=== PATIENT | male | born 1955 | race Caucasian/White ===

== ENCOUNTER 2017-06-05 19:37 | Emergency (ER) | payer OTHER ==
[~2017-06-05] VITALS: Ht 177.8 cm; Wt 95.0 kg
[2017-06-05 21:53] LABS: EOSINOPHILS % 0.2 % (0.0-5.0); HEMOGLOBIN. 13.2 g/dL (14.0-18.0); LYMPHOCYTES % 13.4 % (20.0-50.0); MEAN CORPUSCULAR HEMOGLOBIN 29.6 pg (28.0-32.0); MEAN CORPUSCULAR VOLUME 87.2 fL (80.0-94.0); MEAN PLATELET VOLUME 8.8 fl (7.4-10.4); MONOCYTES % 6.3 % (2.0-8.0); NEUTROPHILS % 79.1 % (40.0-76.0); PLATELET 208 x1000/uL (130-400); RED BLOOD CELL COUNT 4.47 mill/uL (4.7-6.1); RED CELL DISTRIBUTION WIDTH 13.5 % (11.6-14.6)
[2017-06-05 22:04] LABS: CARBON DIOXIDE 26 mEq/L (21-32); CHLORIDE 104 mEq/L (98-107)
[2017-06-05 22:05] LABS: TROPONIN I < 0.02 ng/mL (0.00-0.04)
[2017-06-05 22:15] VITALS: BP 108/65
== END 2017-06-05 23:35 | disposition home or self-care (01) ==
LOC: ER 19:37
DX: R55 Syncope and collapse (principal); I48.91 Unspecified atrial fibrillation; Z79.01 Long term (current) use of anticoagulants; Z98.890 Other specified postprocedural states
CPT/HCPCS: 36415; 80053; 84484; 85025; 93005; 99285